=== PATIENT | male | born 1980 | race Caucasian/White ===

== ENCOUNTER 2016-08-17 14:25 | Inpatient (IN) | payer MEDICAID, OTHER ==
[2016-08-16] MEDS: INSULIN ASPART [NOVOLOG] 3 ML PEN SC SCH (20:49)
[~2016-08-17] VITALS: Ht 162.6 cm; Wt 146.0 kg
[~2016-08-17 14:25] MED LIST: CLIN-73 PO
[2016-08-17] MEDS ORDERED: ACETAMINOPHEN 500 MG TAB PO STA (15:00)
[2016-08-17] MEDS ORDERED: SODIUM CHLORIDE 0.9% 1L BAG IV* STA (15:00)
[2016-08-17 15:17] LABS: ADD SCAN DIFF NO
[2016-08-17 15:18] LABS: ABNORMAL IP MESSAGE 1; HEMATOCRIT 43.5 % (42.0-52.0); HEMOGLOBIN 13.9 g/dl (14.0-18.0); MEAN CORPUSCULAR HEMOGLOBIN 27.2 pg (29.0-33.0); MEAN CORPUSCULAR VOLUME 85.1 fl (82.0-101.0); MEAN PLATELET VOLUME 10.3 fl (7.4-10.4); PLATELET COUNT 256 10^3/UL (140-415); RED BLOOD COUNT 5.11 10^6/ul (4.70-6.10); RED CELL DISTRIBUTION WIDTH 13.4 % (11.5-14.5); WHITE BLOOD COUNT 25.5 10^3/ul (4.8-10.8)
[2016-08-17 15:28] LABS: INR 1.15; PROTIME 14.7 Sec (12.2-14.2); PT RATIO 1.1
[2016-08-17 15:29] LABS: PARTIAL THROMBOPLASTIN TIME 39.3 Sec (25.0-35.0)
[2016-08-17 15:34] LABS: CHLORIDE 97 mmol/L (97-110); SODIUM 137 mmol/L (135-144)
[2016-08-17 15:37] LABS: ALANINE AMINOTRANSFERASE 44 IU/L (13-69); ALBUMIN/GLOBULIN RATIO 1.11; ALKALINE PHOSPHATASE 100 IU/L (42-121); ANION GAP 15 (8-16); ASPARTATE AMINO TRANSFERASE 21 IU/L (15-46); BLOOD UREA NITROGEN 10 mg/dl (7-20); CARBON DIOXIDE 29 mmol/L (21-31); GLUCOSE 142 mg/dl (70-220); TOTAL PROTEIN 7.6 g/dl (6.1-8.1)
[2016-08-17 15:38] LABS: CALCIUM 8.9 mg/dl (8.4-10.2)
--- NOTE | 2016-08-17 15:38 | RADRPT ---
PROCEDURE: Chest Radiograph. CLINICAL INDICATION: Sepsis TECHNIQUE: Single frontal chest radiograph. COMPARISON: Chest radiograph 11/29/2015 FINDINGS: The cardiomediastinal silhouette is within normal limits. Lung volumes are decreased in there is mi ld basilar atelectasis. No infiltrate or effusion is seen. The bones are intact. IMPRESSION: 1. Low lung volumes with basilar atelectasis. RPTAT: KK .Dereck Walker MD, MD Date Time Electronically viewed and signed by .Dereck Walker MD, on 08/17/2016 15:37 .B/
[2016-08-17] MEDS ORDERED: HYDR-906 PO (15:44)
[2016-08-17] MEDS ORDERED: IBUP800T25 PO (15:44)
[2016-08-17 15:47] LABS: MONOCYTE # 0.5 10^3/ul (0.3-0.9); NEUTROPHIL # 23.2 10^3/ul (1.6-7.5)
[2016-08-17 15:53] LABS: TROPONIN-I < 0.012 ng/ml (0.00-0.12)
[2016-08-17] MEDS ORDERED: CEFTRIAXONE 1 GM/50 ML (PMX) 50 ML IVPB ONE (16:00)
[2016-08-17] MEDS ORDERED: OSELTAMIVIR 75 MG CAP PO ONE (16:00)
[2016-08-17] MEDS ORDERED: SOD CHLORIDE 0.9% 1,000 ML IV SCH ×2 (16:05→17:30)
--- NOTE | 2016-08-17 16:08 | ERA ---
ER Documentation Chief Complaint Date/Time DATE: 08/17/16 TIME: 16:06 Chief Complaint fever HPI This is a 35-year-old male who presents to the emergency room for evaluation of fever, chills, and right lower extremity pain. The patient does state he has a history of chronic cellulitis in the right lower extremity, states that today he feels pain in the right lower extremity similar to when he was previously admitted. The patient was also complaining of pain in the left ankle where he had a piece of sheet metal fall on him last week. The patient is able to ambulate however given his symptoms of fever and chills he came to the ER for further evaluation. ROS All systems reviewed and are negative except as per history of present illness. Medications Home Meds Reported Medications Hydrocodone/Acetaminophen ([place] 5-325 Tablet) 1 Each Tablet, 1 EACH PO Q4H, TAB 08/17/16 Ibuprofen* (Ibuprofen*) 800 Mg Tab, 800 MG PO Q6H Y for PAIN, TAB 08/17/16 Discontinued Scripts Clindamycin Hcl* (Clindamycin Hcl*) 300 Mg Capsule, 300 MG PO Q8 for 10 Days, CAP Prov:TEJAS BLAKE UNIX ENGINEER 03/28/16 Allergies Allergies: Coded Allergies: vancomycin (Verified Allergy, Severe, sob, 08/17/16) kidney failure, SOB, Itching, heart racing piperacillin (Verified Allergy, Intermediate, 08/17/16) dificulty breathing, anxiety, dizziness, swelling tounge tazobactam (Verified Allergy, Intermediate, 08/17/16) dificulty breathing, anxiety, dizziness, swelling tounge sulfamethoxazole (Verified Allergy, Unknown, 08/17/16) itching, sob, kidney failure, heart racing trimethoprim (Verified Allergy, Unknown, 08/17/16) PMhx/Soc History of Surgery: No Anesthesia Reaction: No Hx Neurological Disorder: No Hx Respiratory Disorders: Yes (Sleep Apnea) Hx Cardiac Disorders: No Hx Psychiatric Problems: No Hx Miscellaneous Medical Probl: No Hx Alcohol Use: No Hx Substance Use: No Hx Tobacco Use: No Smoking Status: Never smoker Physical Exam Vitals Vital Signs Date Time Temp Pulse Resp B/P Pulse Ox O2 Delivery O2 Flow Rate FiO2 08/17/16 14:45 103.1 125 22 145/83 95 Physical Exam INITIAL VITAL SIGNS: Reviewed by me GENERAL: The patient is well developed and appropriate for usual state of health in no apparent distress, warm to touch HEENT: Pupils equal, round, and reactive to light. EOMI. There is no scleral icterus. NECK: C-spine is soft and supple, there is no meningismus. There is no cervical lymphadenopathy. LUNGS: Clear to auscultation bilaterally. There are no rales, wheezes or rhonchi. HEART: Tachycardic, no murmurs, clicks, rubs or gallops. ABDOMEN: Obese limiting exam, soft, non-tender, non-distended. There are bowel sounds in all four quadrants. No rebound or guarding. EXTREMITIES: There is no peripheral cyanosis or edema. No focal swelling or erythema. NEUROLOGICAL: The patient moves all four extremities with 5/5 strength. Cranial nerves II - XII are intact. Normal gait. Alert and oriented SKIN: Ecchymosis noted over the left ankle, erythema of the right lower extremity extending from the midcalf to the right ankle, no skin sloughing, there is no apparent rash or petechiae. HEME/LYMPHATIC: There is no evidence of excessive bruising or lymphedema. PSYCHIATRIC: The patient does not appear anxious or depressed. Result Diagram: 08/17/16 1500 08/17/16 1500 Results 24 hrs Laboratory Tests Test 08/17/16 15:00 Activated Partial Thromboplast Time 39.3Sec Alanine Aminotransferase (ALT/SGPT) 44IU/L Albumin 4.0g/dl Albumin/Globulin Ratio 1.11 Alkaline Phosphatase 100IU/L Anion Gap 15 Aspartate Amino Transf (AST/SGOT) 21IU/L Band Neutrophils % 3.0% Blood Urea Nitrogen 10mg/dl Calcium Level 8.9mg/dl Carbon Dioxide Level 29mmol/L Chloride Level 97mmol/L Creatinine 0.70mg/dl Direct Bilirubin 0.00mg/dl Globulin 3.60g/dl Glucose Level 142mg/dl Hematocrit 43.5% Hemoglobin 13.9g/dl INR International Normalized Ratio 1.15 Indirect Bilirubin 1.0mg/dl Lactic Acid Level 2.2mmol/L Lymphocytes # 1.010^3/ul Lymphocytes % 4.0% Mean Corpuscular Hemoglobin 27.2pg Mean Corpuscular Hemoglobin Concent 32.0g/dl Mean Corpuscular Volume 85.1fl Mean Platelet Volume 10.3fl Monocytes # 0.510^3/ul Monocytes % 2.0% Neutrophils # 23.210^3/ul Neutrophils % 91.0% Platelet Count 52718^3/UL Potassium Level 4.0mmol/L Prothrombin Time 14.7Sec Prothrombin Time Ratio 1.1 Red Blood Count 5.1110^6/ul Red Cell Distribution Width 13.4% Sodium Level 137mmol/L Total Bilirubin 1.0mg/dl Total Protein 7.6g/dl Troponin I < 0.012ng/ml White Blood Count 25.510^3/ul Current Medications Medications (Trade) Dose Ordered Sig/Mary Jo Route PRN Reason Start Time Stop Time Status Last Admin Dose Admin Sodium Chloride (NS) 4,530 ml BOLUS OVER 2 HOURS STAT IV* 08/17/16 15:00 08/17/16 15:02 DC 08/17/16 15:22 Acetaminophen 1000 mg 1,000 mg ONCE STAT PO 08/17/16 15:00 08/17/16 15:02 DC 08/17/16 15:15 Ceftriaxone Sodium (Rocephin) 50 ml @ 100 mls/hr ONCE ONCE IVPB 08/17/16 16:00 08/17/16 16:29 08/17/16 16:07 Oseltamivir Phosphate 150 mg 150 mg ONCE ONCE PO 08/17/16 16:00 08/17/16 16:01 DC 08/17/16 15:59 Sodium Chloride (NS) 1,000 ml @ 80 mls/hr [id number] IV 08/17/16 16:05 08/18/16 04:34 Ondansetron HCl (Zofran Inj) 4 mg BRIDGE ORDER PRN IV NAUSEA AND/OR VOMITING 08/17/16 16:30 08/18/16 16:29 Acetaminophen (Tylenol Tab) 650 mg ER BRIDGE PRN PO MILD PAIN/FEVER 08/17/16 16:30 08/18/16 16:29 Procedures/MDM Ultrasound left lower extremity: No DVT Chest X-ray 1V Interpreted by me: Soft Tissue: No acute abnormalities Bones: No acute abnormalities Mediastinum/Cardiac Silhouette/Lungs: [No acute abnormalities] EKG: Rate/Rhythm: Sinus tachycardia QRS, ST, T-waves: [No changes consistent w/ acute ischemia] Impression: [No evidence of ischemia or arrhythmia] This 35-year-old male presents to the emergency room for evaluation of fever, chills. This patient does have a history of cellulitis and a multiple antibiotic allergies. This patient did have redness on his right lower extremity. I did no ecchymosis on the left ankle, I did obtain an ultrasound of the left lower extremity to rule out DVT. There is no sign for DVT. When I evaluated him he was febrile, tachycardic, warm to touch. A septic workup was started on this patient. This patient does have fever, tachycardia, and leukocytosis. He does have cellulitis of the right lower extremity. He was also influenza B positive. The patient was given Tylenol in the emergency room. He was started on Rocephin, and will be placed in for admission at this time for cellulitis with sepsis, and influenza. I am not sure whether his fever is secondary to his influenza or his cellulitis, however given his complicated medical history and previous sepsis the patient will be placed in for admission at this time for IV antibiotics and infectious disease consult. The patient is hemodynamically stable at this time, he did receive 30 cc/kg of IV normal saline. The patient will be placed on the [facility] floor at this time under the care of Dr.m Stout. Critical Care: Excluding all billable procedures Time: 48 minutes Treatments/Evaluations: Close monitoring and treatment of unstable vital signs, cardiorespiratory, and neurologic status, while maintaining tight balance of fluid, respiratory, and cardiac interventions. Departure Diagnosis: Primary Impression: Sepsis Additional Impressions: Cellulitis of right lower extremity Influenza B Condition: KEENAN Shore DO Aug 17, 2016 16:07
--- NOTE | 2016-08-17 16:12 | RADRPT ---
PROCEDURE: US Lower extremity Venous. CLINICAL INDICATION: Left leg pain TECHNIQUE: Multiple sonographic images of the left lower extremity deep venous system was obtained utilizing grayscale, color-flow, compressive sonography and doppler imaging with augmentation. The images were reviewed on a PACS workstation. COMPARISON: None. FINDINGS: There is normal compressibility and flow within the left common femoral, superficial femoral, self pay collector ior tibial, peroneal and popliteal veins. RPTAT: AA IMPRESSION: No sonographic evidence for deep venous thrombosis. .Gaurav Oh MD, MD Date Time Electronically viewed and signed by .Gaurav Oh MD, on 08/17/2016 16:12 .S/
[2016-08-17] MEDS ORDERED: ACETAMINOPHEN 325 MG TAB PO PRN ×2 (16:30→17:30)
[2016-08-17] MEDS ORDERED: ONDANSETRON 4 MG INJ IV PRN ×2 (16:30→17:30)
[2016-08-17 16:41] LABS: URINE BILIRUBIN (Dip) NEGATIVE (NEGATIVE); URINE BLOOD (Dip) NEGATIVE (NEGATIVE); URINE COLOR LT. YELLOW (YELLOW); URINE GLUCOSE (Dip) NEGATIVE (NEGATIVE); URINE KETONES (Dip) NEGATIVE (NEGATIVE); URINE LEUKOCYTE ESTERASE (Dip) NEGATIVE (NEGATIVE); URINE NITRITE (Dip) NEGATIVE (NEGATIVE); URINE UROBILINOGEN (Dip) 0.2 E.U./dL (0.1-1.0)
[2016-08-17 16:56] LABS: ADD UMIC NO; URINE TOTAL PROTEIN (Dip) NEGATIVE (NEGATIVE)
[2016-08-17] MEDS ORDERED: HYDROCODONE/APAP (7.5/325) TAB PO PRN (17:30)
[2016-08-17] MEDS ORDERED: ALBUTEROL 0.083% (NEB) 2.5 MG/3 ML AMP HHN PRN (18:00)
[2016-08-17] MEDS ORDERED: GLUCOSE GEL 15 GRAM TUBE BUCCAL PRN (18:30)
[2016-08-17] MEDS ORDERED: DEXTROSE 50% 50 ML SYRINGE IV PRN ×2 (18:30)
[2016-08-17] MEDS ORDERED: GLUCOSE GEL 15 GRAM TUBE PO PRN ×2 (18:30)
[2016-08-17] MEDS ORDERED: GLUCAGON 1 MG INJ IM PRN (18:30)
[2016-08-17 18:40] VITALS: PULSE 96; TEMP 99.7
[2016-08-17] MEDS: INSULIN ASPART [NOVOLOG] 3 ML PEN SC SCH (21:00)
[2016-08-17] MEDS: OSELTAMIVIR 75 MG CAP PO SCH (21:06)
[2016-08-17] MEDS: DOCUSATE SODIUM 100 MG CAP PO SCH (21:06)
[2016-08-17 21:32] VITALS: BP 104/62; RESP 20
[2016-08-17 21:39] VITALS: Ht 162.6 cm; Wt 146.0 kg
--- NOTE | 2016-08-18 06:10 | HP ---
DATE OF ADMISSION: 08/17/2016 PRESENTING COMPLAINT: Fever, chills and right lower extremity pain. HISTORY OF PRESENTING COMPLAINT: Mr. Oconnor is a 35-year-old male who presents today with a history of right lower extremity pain that has been going on for the last 3 to 4 days. The patient states t hat he has recurrent cellulitis in his right lower extremity, which is verified by his medical recor ds, but he says that every time he has that he always has flu-like symptoms. In the emergency room his influenza sputum was positive for flu. He also was noted to have cellulitis on the right lower extremity and to be febrile with tachycardia, and is being admitted for further workup and managemen t. Of note is that there is a report of left ankle discomfort and pain and a history of trauma at t [facility] ankle. PAST MEDICAL HISTORY: 1. Recurrent right lower extremity cellulitis. 2. Morbid obesity. 3. Diabetes mellitus type 2. 4. Chronic back pain. 5. Chronic neuropathy that precipitates his recurrent cellulitis. 6. Obstructive sleep apnea, for which the patient is supposed to be on home CPAP, but does not use it all the time. 7. Documentation of iron deficiency. PAST SURGICAL HISTORY: Patient denies. ALLERGIES: REPORTED ALLERGY TO: 1. VANCOMYCIN. 2. ZOSYN. 3 SULFA. 4. BACTRIM. IT LOOKS LIKE THE LAST TIME HE WAS HERE HE WAS STARTED ON VANCOMYCIN AND ZOSYN AND HAD AN ALLERGIC R EACTION, BUT WE COULD NOT FIGURE OUT EXACTLY WHAT HE REACTED TO. SOCIAL HISTORY: Denies tobacco, alcohol or illicit drug use. FAMILY HISTORY: No history of recurrent cellulitis in any members of his family. PHYSICAL EXAMINATION: VITAL SIGNS: Temperature 103, pulse 125, respirations 22, blood pressure 145/83, saturations 95%. When the patient sleeps, he was noted to desaturate and hence was put on CPAP while he was sleeping. GENERAL: Obese male, at this time a little drowsy but arousable and able to participate in history taking. He does not seem to be in any distress. A CPAP mask is in place. HEENT: Head normocephalic. No evidence of trauma. Mucous membranes were not assessed. NECK: Seems supple; however, a JVD exam could not really be done because of the CPAP, and the patie nt should be sitting. CHEST: He seems to have clear breath sounds, but reduced bilaterally, even with CPAP. CARDIOVASCULAR: S1 and S2, with tachycardia. No murmurs. ABDOMEN: Obese, soft, not overtly tender. Seems to have normal active bowel sounds. EXTREMITIES: The patient does have a right-sided cellulitic picture in the lower half of his right leg. Generally, his foot does not seem overtly affected, but he does have edema in the right foot. In the left lower extremity just posterior to the ankle is a hyperpigmented, discolored patch that seems to be the site of trauma from a previous injury. Other than that, there are no other signific ant skin findings. He had equal and good radial pulses bilaterally. PSYCHIATRIC: He was cooperative with exam. LABORATORY: He had a leukocytosis of 25,000. His hemoglobin was low at 13, but his basic metabolic profile was unremarkable. His LFTs are not overtly concerning and his coag profile was also fairly normal. First troponin is negative. Lactic acid was elevated at 2.2. In the emergency room he wa s given a fluid bolus, Tylenol, Ceftriaxone, Tamiflu, Zofran and Tylenol. He had an ultrasound don e of his lower extremity that showed no DVT. Chest x-ray was unremarkable. EKG showed sinus tachyc ardia. ASSESSMENT: 1. Sepsis, likely secondary to a combination of #2 and 3. 2. Recurrent lower extremity cellulitis. 3. Positive influenza B infection. 4. Diabetes mellitus type 2, with looks like in fairly good control. 5. Morbid obesity. 6. Obstructive sleep apnea, requiring CPAP at bedtime. 7. MULTIPLE DRUG ALLERGIES. 8. Iron deficiency. 9. Chronic anemia. PLAN: Admit the patient for broad spectrum antibiotic coverage and care, needs hydration, trend lac tic acid levels, and blood as well as urine cultures will be sent. The patient has been started on Tamiflu, related to flu precautions. He will continue on CPAP at bedtime. I will keep a close eye on his saturation levels. Further interventions will depend on his clinical course. Prophylaxis wi ll be provided with Lovenox, as well as Pepcid. Plan of care has been discussed with the patient and questions have been answered. Admission time was 40 minutes. Dictated By: NAVARRO ROBISON MD, BA/JAEL Conf#: [id number] DID#: [id number]
[2016-08-18 06:17] LABS: ADD SCAN DIFF NO
[2016-08-18 06:28] LABS: BASOPHIL # 0.1 10^3/ul (0.0-0.1); BASOPHILS % 0.3 % (0.0-2.0); EOSINOPHILS % 0.1 % (0.0-7.0); HEMATOCRIT 43.5 % (42.0-52.0); HEMOGLOBIN 13.7 g/dl (14.0-18.0); LYMPHOCYTES # 1.9 10^3/ul (0.8-2.9); LYMPHOCYTES % 10.1 % (15.0-51.0); MEAN CORPUSCULAR HEMOGLOBIN 27.3 pg (29.0-33.0); MEAN CORPUSCULAR HGB CONC 31.5 g/dl (32.0-37.0); MEAN CORPUSCULAR VOLUME 86.7 fl (82.0-101.0); MEAN PLATELET VOLUME 11.2 fl (7.4-10.4); MONOCYTE # 1.1 10^3/ul (0.3-0.9); MONOCYTES % 5.8 % (0.0-11.0); NEUTROPHIL # 15.5 10^3/ul (1.6-7.5); NEUTROPHILS % 83.2 % (39.0-77.0); PLATELET COUNT 229 10^3/UL (140-415); RED BLOOD COUNT 5.02 10^6/ul (4.70-6.10); WHITE BLOOD COUNT 18.6 10^3/ul (4.8-10.8)
[2016-08-18] MEDS: INSULIN ASPART [NOVOLOG] 3 ML PEN SC SCH ×4 (08:00→20:56)
[2016-08-18 08:04] VITALS: BP 132/79; RESP 20
[2016-08-18 08:48] LABS: ALBUMIN 3.5 g/dl (3.3-4.9); POTASSIUM 3.8 mmol/L (3.5-5.1)
[2016-08-18 08:50] LABS: BILIRUBIN,INDIRECT 1.1 mg/dl (0-1.1); BILIRUBIN,TOTAL 1.1 mg/dl (0.2-1.3); CREATININE 0.55 mg/dl (0.61-1.24); IRON 34 ug/dl (35-150)
[2016-08-18 08:51] LABS: ALBUMIN/GLOBULIN RATIO 0.97; MAGNESIUM 1.9 mg/dl (1.7-2.5); TOTAL PROTEIN 7.1 g/dl (6.1-8.1)
[2016-08-18 08:59] LABS: TOTAL IRON BINDING CAPACITY 430 ug/dl (241-421)
[2016-08-18] MEDS: DOCUSATE SODIUM 100 MG CAP PO SCH ×2 (09:38→20:55)
[2016-08-18] MEDS: OSELTAMIVIR 75 MG CAP PO SCH ×2 (09:38→20:56)
--- NOTE | 2016-08-18 15:29 | PN ---
Date/Time of Note Date/Time of Note DATE: 08/18/16 TIME: 15:18 Assessment/Plan VTE Prophylaxis VTE Prophylaxis Intervention: LMWH Lines/Catheters [facility] Saline Lock Urinary Cath still in place: No Assessment/Plan Assessment/Plan 1. Recurrent right lower extremity cellulitis. on rocephin, keep right leg elevated 3. Positive influenza B infection. on Tamiflu 4. Diabetes mellitus type 2, stable 5. Morbid obesity. 6. Obstructive sleep apnea, requiring CPAP at bedtime. 7. MULTIPLE DRUG ALLERGIES. 8. Iron deficiency anemia, 9. DVT prophylaxis: Lovenox Subjective 24 Hr Interval Summary Free Text/Dictation afebrile, minimal cough. right leg pain Exam/Review of Systems Vital Signs Vitals Vital Signs Date Time Temp Pulse Resp B/P Pulse Ox O2 Delivery O2 Flow Rate FiO2 08/18/16 15:01 3.0 08/18/16 08:04 98.3 89 20 132/79 98 08/17/16 18:40 Nasal Cannula 08/17/16 18:07 35 Intake and Output 08/17/16 08/17/16 08/18/16 15:00 23:00 07:00 Intake Total 4580 ml 1000 ml Output Total 2350 ml Balance 2230 ml 1000 ml Exam Constitutional: alert, oriented, well developed Psych: nl mood/affect, no complaints Head: atraumatic, normocephalic Eyes: EOMI, nl conjunctiva, nl lids ENMT: nl external ears & nose, nl lips & teeth, nl nasal mucosa & septum Neck: non-tender, supple Respiratory: clear to auscultation, normal air movement, No congested cough, No crackles/rales, No diminished breath sounds, No intercostal retraction, No labored breathing, No other, No respirations, No tactile fremitus, No wheezing Cardiovascular: nl pulses, regular rate and rhythm, No S3, No S4, No bruits, No diastolic murmur, No edema, No gallop, No irregular rhythm, No jugular venous distention (JVD), No murmurs/extra sounds, No other, No rub, No systolic murmur Gastrointestinal: nl liver, spleen, non-tender, soft, No ascites, No bowel sounds, No distended, No firm, No hepatomegaly, No mass , No other, No rebound or guarding, No splenomegaly, No surgical scars, No tender Musculoskeletal: nl extremities to inspection Extremities: normal pulses, other (right lower extremity redness, swelling, warm, and tender) Neurological: FASHION MARKETER II-XII intact, nl mental status, nl speech, nl strength Lymph: nl lymph nodes Results Result Diagram: 08/18/16 0500 08/18/16 0500 Results 24 hrs Laboratory Tests Test 08/17/16 16:12 08/17/16 17:00 08/17/16 20:46 08/17/16 20:51 Urine Bilirubin NEGATIVE Urine Clarity CLEAR Urine Color LT. YELLOW Urine Glucose NEGATIVE Urine Hemoglobin NEGATIVE Urine Ketones NEGATIVE Urine Leukocyte Esterase NEGATIVE Urine Nitrite NEGATIVE Urine Specific [place] 1.015 Urine Total Protein NEGATIVE Urine Urobilinogen 0.2 E.U./dL Urine pH 8.0 Lactic Acid Level 1.0 1.2 Bedside Glucose 98 Test 08/18/16 05:00 08/18/16 08:20 08/18/16 10:10 08/18/16 11:51 Alanine Aminotransferase (ALT/SGPT) 37 Albumin 3.5 Albumin/Globulin Ratio 0.97 Alkaline Phosphatase 88 Anion Gap 16 Aspartate Amino Transf (AST/SGOT) 34 # Basophils # 0.1 Basophils % 0.3 Blood Urea Nitrogen 7 Calcium Level 8.0 L Carbon Dioxide Level 27 Chloride Level 100 Creatinine 0.55 L Direct Bilirubin 0.00 Eosinophils # 0.0 Eosinophils % 0.1 Globulin 3.60 H Glucose Level 98 # Hematocrit 43.5 Hemoglobin 13.7 L Hemoglobin A1c 13.1 H Indirect Bilirubin 1.1 Iron Level 34 L Lymphocytes # 1.9 Lymphocytes % 10.1 L Magnesium Level 1.9 Mean Corpuscular Hemoglobin 27.3 L Mean Corpuscular Hemoglobin Concent 31.5 L Mean Corpuscular Volume 86.7 Mean Platelet Volume 11.2 H Monocytes # 1.1 H Monocytes % 5.8 Neutrophils # 15.5 H Neutrophils % 83.2 H Nucleated Red Blood Cells # 0.0 Nucleated Red Blood Cells % 0.0 Percent Iron Saturation 8 L Platelet Count 229 Potassium Level 3.8 Red Blood Count 5.02 Red Cell Distribution Width 14.0 Sodium Level 139 Total Bilirubin 1.1 Total Iron Binding Capacity 430 H Total Protein 7.1 White Blood Count 18.6 #H Bedside Glucose 109 107 Lactic Acid Level 0.8 Medications Medications Current Medications Oseltamivir Phosphate (Tamiflu) 75 mg BID PO Last administered on 08/18/16 09: 38; Admin Dose 75 MG; Start 08/17/16 at 21:00 Ondansetron HCl (Zofran Inj) 4 mg Q6H PRN IV NAUSEA AND/OR VOMITING; Start 08/17 at 17:30 Docusate Sodium (Colace) 100 mg BID PO Last administered on 08/18/16 09:38; Admin Dose 100 MG; Start 08/17/16 at 21:00 Acetaminophen (Tylenol Tab) 650 mg Q6H PRN PO PAIN AND OR ELEVATED TEMP; Start 08/17/16 at 17:30 Acetaminophen/ Hydrocodone Bitart ([place] (7.5-325)) 1 tab Q6H PRN PO pain; Start 08/17/16 at 17:30 Miscellaneous Information 1 ea NOTE XX ; Start 08/17/16 at 18:30 Glucose (Glutose) 15 gm Q15M PRN PO DECREASED GLUCOSE; Start 08/17/16 at 18:30 Glucose (Glutose) 22.5 gm Q15M PRN PO DECREASED GLUCOSE; Start 08/17/16 at 18:30 Dextrose (D50w Syringe) 25 ml Q15M PRN IV DECREASED GLUCOSE; Start 08/17/16 at 18:30 Dextrose (D50w Syringe) 50 ml Q15M PRN IV DECREASED GLUCOSE; Start 08/17/16 at 18:30 Glucagon (Glucagen) 1 mg Q15M PRN IM DECREASED GLUCOSE; Start 08/17/16 at 18:30 Glucose (Glutose) 15 gm Q15M PRN BUCCAL DECREASED GLUCOSE; Start 08/17/16 at 18: 30 ABRIL DE LA TORRE MD Aug 18, 2016 15:28
[2016-08-18] MEDS: ENOXAPARIN 40 MG/0.4 ML SYG SC SCH (16:01)
[2016-08-18 21:30] VITALS: BP 117/59; RESP 19
[2016-08-18] MEDS: CEFTRIAXONE 2 GM/50 ML (PMX) 50 ML IVPB SCH (21:47)
[2016-08-19 07:38] LABS: ADD SCAN DIFF NO
[2016-08-19 07:46] LABS: BASOPHIL # 0.1 10^3/ul (0.0-0.1); BASOPHILS % 0.5 % (0.0-2.0); EOSINOPHILS # 0.3 10^3/ul (0.0-0.5); EOSINOPHILS % 2.4 % (0.0-7.0); HEMATOCRIT 44.5 % (42.0-52.0); HEMOGLOBIN 13.9 g/dl (14.0-18.0); LYMPHOCYTES # 2.5 10^3/ul (0.8-2.9); LYMPHOCYTES % 18.7 % (15.0-51.0); MEAN CORPUSCULAR HGB CONC 31.2 g/dl (32.0-37.0); MEAN CORPUSCULAR VOLUME 86.6 fl (82.0-101.0); MEAN PLATELET VOLUME 10.7 fl (7.4-10.4); MONOCYTE # 1.2 10^3/ul (0.3-0.9); MONOCYTES % 8.8 % (0.0-11.0); NEUTROPHIL # 9.1 10^3/ul (1.6-7.5); NEUTROPHILS % 69.1 % (39.0-77.0); PLATELET COUNT 233 10^3/UL (140-415); RED BLOOD COUNT 5.14 10^6/ul (4.70-6.10); RED CELL DISTRIBUTION WIDTH 13.6 % (11.5-14.5); WHITE BLOOD COUNT 13.1 10^3/ul (4.8-10.8)
[2016-08-19] MEDS: INSULIN ASPART [NOVOLOG] 3 ML PEN SC SCH ×4 (07:55→20:55)
[2016-08-19 08:17] VITALS: BP 112/67; RESP 20
[2016-08-19 08:28] LABS: ALBUMIN 3.6 g/dl (3.3-4.9); POTASSIUM 4.4 mmol/L (3.5-5.1)
[2016-08-19 08:30] LABS: CREATININE 0.61 mg/dl (0.61-1.24)
[2016-08-19 08:31] LABS: ALBUMIN/GLOBULIN RATIO 1.05; BILIRUBIN,INDIRECT 0.6 mg/dl (0-1.1); BILIRUBIN,TOTAL 0.6 mg/dl (0.2-1.3)
[2016-08-19 08:32] LABS: CALCIUM 8.5 mg/dl (8.4-10.2)
[2016-08-19] MEDS: OSELTAMIVIR 75 MG CAP PO SCH ×2 (09:38→20:56)
[2016-08-19] MEDS: DOCUSATE SODIUM 100 MG CAP PO SCH ×2 (09:38→20:56)
[2016-08-19] MEDS: ENOXAPARIN 40 MG/0.4 ML SYG SC SCH (09:39)
--- NOTE | 2016-08-19 11:59 | PN ---
Date/Time of Note Date/Time of Note DATE: 08/19/16 TIME: 11:56 Assessment/Plan VTE Prophylaxis VTE Prophylaxis Intervention: other Lines/Catheters [facility] Peripheral IV Urinary Cath still in place: No Assessment/Plan Problems: (1) Non-compliant behavior Status: Chronic Comment: Patient has been carefully but directly counseled on this. Regrettably I suspect he is not going to become more cooperative in the future until something very significant happen I have counseled him on multiple of the options of what we did find significant (2) Diabetes mellitus type 2 in obese Status: Chronic Comment: He actually has good control. (3) Sleep apnea Status: Chronic Comment: He has active sleep apnea he reports that he lost his CPAP device and will not go to see a physician as an outpatient to get a new Qualifiers: Sleep apnea type: obstructive Qualified Code: G47.33 - Obstructive sleep apnea syndrome (4) Morbid obesity with BMI of 50.0-59.9, adult Status: Chronic Comment: Strongly counseled ideally he would probably be a candidate for bariatric weight reduction surgery except he declines (5) Cellulitis of right lower extremity Status: Acute Comment: Improving with antibiotic therapy. Please note that a portion of this is due to chronic venous stasis changes due to his obesity (6) Influenza B Status: Acute Comment: On Tamiflu (7) Sepsis Status: Acute Comment: His symptomatology tachycardia elevated white count and fevers have all improved with antibiotic therapy Qualifiers: Sepsis type: sepsis due to unspecified organism Qualified Code: A41.9 - Sepsis, due to unspecified organism Subjective 24 Hr Interval Summary Constitutional: no complaints (Denies fevers chills or sweats) Respiratory: no complaints Cardiovascular: no complaints Gastrointestinal: no complaints Exam/Review of Systems Vital Signs Vitals Vital Signs Date Time Temp Pulse Resp B/P Pulse Ox O2 Delivery O2 Flow Rate FiO2 08/19/16 08:17 98.4 88 20 112/67 95 08/19/16 01:20 3.0 08/17/16 18:40 Nasal Cannula 08/17/16 18:07 35 Intake and Output 08/18/16 08/18/16 08/19/16 15:00 23:00 07:00 Intake Total 1670 ml 500 ml Balance 1670 ml 500 ml Exam Patient sleeping in a chair sitting up leaning forward snoring with apneic spells Neck: non-tender, supple Respiratory: clear to auscultation, normal air movement Cardiovascular: nl pulses, regular rate and rhythm Extremities: other (Area of inked margins on cellulitis has improved significantly bilateral chronic lower extremity venous changes) Results Result Diagram: 08/19/16 0700 08/19/16 0700 Results 24 hrs Laboratory Tests Test 08/18/16 16:52 08/18/16 20:50 08/19/16 07:00 08/19/16 07:33 Bedside Glucose 90 116 85 Alanine Aminotransferase (ALT/SGPT) 46 Albumin 3.6 Albumin/Globulin Ratio 1.05 Alkaline Phosphatase 91 Anion Gap 15 Aspartate Amino Transf (AST/SGOT) 30 Basophils # 0.1 Basophils % 0.5 Blood Urea Nitrogen 13 Calcium Level 8.5 Carbon Dioxide Level 32 H Chloride Level 99 Creatinine 0.61 Direct Bilirubin 0.00 Eosinophils # 0.3 Eosinophils % 2.4 Globulin 3.40 H Glucose Level 87 Hematocrit 44.5 Hemoglobin 13.9 L Indirect Bilirubin 0.6 Lymphocytes # 2.5 Lymphocytes % 18.7 Mean Corpuscular Hemoglobin 27.0 L Mean Corpuscular Hemoglobin Concent 31.2 L Mean Corpuscular Volume 86.6 Mean Platelet Volume 10.7 H Monocytes # 1.2 H Monocytes % 8.8 Neutrophils # 9.1 H Neutrophils % 69.1 Nucleated Red Blood Cells # 0.0 Nucleated Red Blood Cells % 0.0 Platelet Count 233 Potassium Level 4.4 Red Blood Count 5.14 Red Cell Distribution Width 13.6 Sodium Level 142 Total Bilirubin 0.6 Total Protein 7.0 White Blood Count 13.1 #H Medications Medications Current Medications Oseltamivir Phosphate (Tamiflu) 75 mg BID PO Last administered on 08/19/16 09: 38; Admin Dose 75 MG; Start 08/17/16 at 21:00 Ondansetron HCl (Zofran Inj) 4 mg Q6H PRN IV NAUSEA AND/OR VOMITING; Start 08/17 at 17:30 Docusate Sodium (Colace) 100 mg BID PO Last administered on 08/19/16 09:38; Admin Dose 100 MG; Start 08/17/16 at 21:00 Acetaminophen (Tylenol Tab) 650 mg Q6H PRN PO PAIN AND OR ELEVATED TEMP; Start 08/17/16 at 17:30 Acetaminophen/ Hydrocodone Bitart ([place] (7.5-325)) 1 tab Q6H PRN PO pain Last administered on 08/18/16 20:56; Admin Dose 1 TAB; Start 08/17/16 at 17:30 Miscellaneous Information 1 ea NOTE XX ; Start 08/17/16 at 18:30 Glucose (Glutose) 15 gm Q15M PRN PO DECREASED GLUCOSE; Start 08/17/16 at 18:30 Glucose (Glutose) 22.5 gm Q15M PRN PO DECREASED GLUCOSE; Start 08/17/16 at 18:30 Dextrose (D50w Syringe) 25 ml Q15M PRN IV DECREASED GLUCOSE; Start 08/17/16 at 18:30 Dextrose (D50w Syringe) 50 ml Q15M PRN IV DECREASED GLUCOSE; Start 08/17/16 at 18:30 Glucagon (Glucagen) 1 mg Q15M PRN IM DECREASED GLUCOSE; Start 08/17/16 at 18:30 Glucose (Glutose) 15 gm Q15M PRN BUCCAL DECREASED GLUCOSE; Start 08/17/16 at 18: 30 Enoxaparin Sodium 40 mg 40 mg DAILY SC Last administered on 08/19/16 09:39; Admin Dose 40 MG; Start 08/18/16 at 15:30 Ceftriaxone Sodium (Rocephin) 50 ml @ 100 mls/hr Q24H IVPB Last administered on 08/18/16 21:47; Admin Dose 100 MLS/HR; Start 08/18/16 at 20:30 EDWARD PULIDO MD Aug 19, 2016 11:58
[2016-08-19] MEDS: CEFTRIAXONE 2 GM/50 ML (PMX) 50 ML IVPB SCH (20:56)
[2016-08-19 21:49] VITALS: BP 128/79; RESP 22
[2016-08-20 05:39] LABS: ADD SCAN DIFF NO
[2016-08-20 05:54] LABS: BASOPHIL # 0.1 10^3/ul (0.0-0.1); BASOPHILS % 0.5 % (0.0-2.0); EOSINOPHILS # 0.3 10^3/ul (0.0-0.5); EOSINOPHILS % 2.8 % (0.0-7.0); HEMATOCRIT 44.9 % (42.0-52.0); LYMPHOCYTES # 2.7 10^3/ul (0.8-2.9); LYMPHOCYTES % 22.5 % (15.0-51.0); MEAN CORPUSCULAR HEMOGLOBIN 26.9 pg (29.0-33.0); MEAN CORPUSCULAR HGB CONC 31.2 g/dl (32.0-37.0); MEAN CORPUSCULAR VOLUME 86.2 fl (82.0-101.0); MEAN PLATELET VOLUME 10.8 fl (7.4-10.4); MONOCYTE # 1.1 10^3/ul (0.3-0.9); NEUTROPHIL # 7.9 10^3/ul (1.6-7.5); NEUTROPHILS % 64.6 % (39.0-77.0); PLATELET COUNT 264 10^3/UL (140-415); RED BLOOD COUNT 5.21 10^6/ul (4.70-6.10); RED CELL DISTRIBUTION WIDTH 13.4 % (11.5-14.5); WHITE BLOOD COUNT 12.2 10^3/ul (4.8-10.8)
[2016-08-20] MEDS: INSULIN ASPART [NOVOLOG] 3 ML PEN SC SCH ×2 (07:45→11:48)
[2016-08-20 08:48] VITALS: BP 116/76; RESP 20
[2016-08-20] MEDS: DOCUSATE SODIUM 100 MG CAP PO SCH (09:39)
[2016-08-20] MEDS: OSELTAMIVIR 75 MG CAP PO SCH (09:39)
[2016-08-20] MEDS: ENOXAPARIN 40 MG/0.4 ML SYG SC SCH (09:40)
--- NOTE | 2016-08-20 10:49 | PDOCDIS ---
Discharge Instructions DIAGNOSIS Discharge Diagnosis: Right lower extremity cellulitis; chronic venous stasis; morbid obesity;alma rosa CONDITION Patient Condition: Good HOME CARE INSTRUCTIONS: Diet Instructions: Reduced Calorie ACTIVITY: Activity Restrictions: Do not operate Machinery Do not operate Power Tool FOLLOW UP/APPOINTMENTS Appointments Primary care physician within 2 weeks both to follow-up the leg and especially to get restarted on sleep apnea treatment with CPAP EDWARD PULIDO MD Aug 20, 2016 10:49
[2016-08-20] MEDS ORDERED: CEPH500C PO (10:50)
[2016-08-20] MEDS ORDERED: OSLT75C PO (10:50)
--- NOTE | 2016-08-20 10:54 | DS ---
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 Oconnor is a 35-year-old male who presents today with a history of right lower extremity pain that has been going on for the last 3 to 4 days. The patient states that he has recurrent cellulitis in his right lower extremity, which is verified by his medical records, but he says that every time he has that he always has flu-like symptoms. In the emergency room his influenza sputum was positive for flu. He also was noted to have cellulitis on the right lower extremity and to be febrile with tachycardia, and is being admitted for further workup and management. Of note is that there is a report of left ankle discomfort and pain and a history of trauma at that ankle. Hospital Course 35-year-old morbidly obese male was admitted for the lower extremity cellulitis. Please note that this is aggravated by prior injury and chronic lower extremity edema due to sleep apnea and the morbid obesity. Improved nicely with IV antibiotics. Please note he had rather significant obstructive sleep apnea and refused to wear the CPAP in the hospital. He is now stable for discharge in improved condition as compared to the time of admission. Please note he also had influenza which responded to treatment with Tamiflu. He has no known communicable diseases as of now he is not a hazard to himself or others his rehabilitation potential is fair. The main issue for him will be to get back on sleep apnea and consider some type of lifestyle maneuver to deal with the morbid obesity Home Meds Active Scripts Cephalexin* (Cephalexin*) 500 Mg Capsule, 500 MG PO Q6 for 7 Days, #28 CAP Prov:EDWARD PULIDO MD 08/20/16 Oseltamivir Phosphate* (Tamiflu*) 75 Mg Capsule, 75 MG PO BID for 3 Days, CAP Prov:EDWARD PULIDO MD 08/20/16 Reported Medications Hydrocodone/Acetaminophen (Stout 5-325 Tablet) 1 Each Tablet, 1 EACH PO Q4H, TAB 08/17/16 Ibuprofen* (Ibuprofen*) 800 Mg Tab, 800 MG PO Q6H Y for PAIN, TAB 08/17/16 Discontinued Scripts Clindamycin Hcl* (Clindamycin Hcl*) 300 Mg Capsule, 300 MG PO Q8 for 10 Days, CAP Prov:TEJAS BLAKE [employer] 03/28/16 Pending Labs Laboratory Tests Test 08/19/16 12:27 08/19/16 17:41 08/19/16 20:55 08/20/16 05:16 Bedside Glucose 80mg/dL (70-220) 142mg/dL (70-220) 109mg/dL (70-220) Basophils # 0.110^3/ul (0.0-0.1) Basophils % 0.5% (0.0-2.0) Eosinophils # 0.310^3/ul (0.0-0.5) Eosinophils % 2.8% (0.0-7.0) Hematocrit 44.9% (42.0-52.0) Hemoglobin 14.0g/dl (14.0-18.0) Lymphocytes # 2.710^3/ul (0.8-2.9) Lymphocytes % 22.5% (15.0-51.0) Mean Corpuscular Hemoglobin 26.9pg (29.0-33.0) Mean Corpuscular Hemoglobin Concent 31.2g/dl (32.0-37.0) Mean Corpuscular Volume 86.2fl (82.0-101.0) Mean Platelet Volume 10.8fl (7.4-10.4) Monocytes # 1.110^3/ul (0.3-0.9) Monocytes % 9.0% (0.0-11.0) Neutrophils # 7.910^3/ul (1.6-7.5) Neutrophils % 64.6% (39.0-77.0) Nucleated Red Blood Cells # 0.010^3/ul (0.0-0.0) Nucleated Red Blood Cells % 0.0/100WBC (0.0-0.0) Platelet Count 78108^3/UL (140-415) Red Blood Count 5.2110^6/ul (4.70-6.10) Red Cell Distribution Width 13.4% (11.5-14.5) White Blood Count 12.210^3/ul (4.8-10.8) Test 08/20/16 07:40 Bedside Glucose 79mg/dL (70-220) EDWARD PULIDO MD Aug 20, 2016 10:54
== END 2016-08-20 12:04 | disposition home or self-care (01) | DRG 603 ==
LOC: E/R 14:25 → PP2 16:05
PROVIDERS: ADMIT Family Medicine; ATTEND Family Medicine
DX: L03.115 Cellulitis of right lower limb (principal); Z68.43 Body mass index [BMI] 50.0-59.9, adult; I87.8 Other specified disorders of veins; G47.33 Obstructive sleep apnea (adult) (pediatric); E11.9 Type 2 diabetes mellitus without complications; D50.9 Iron deficiency anemia, unspecified; E66.01 Morbid (severe) obesity due to excess calories; R60.9 Edema, unspecified; J11.1 Influenza due to unidentified influenza virus with other respiratory manifestations; T36.8X5A Adverse effect of other systemic antibiotics, initial encounter
CPT/HCPCS: 36415; 71010; 80053; 81003; 82962; 83036; 83540; 83605; 83735; 84484; 85025; 85610; 85730; 87040; 87086; 87400; 93005; 93971; 94660; 96365; J0696; J1650; J1815; J7030